=== PATIENT | female | born 1970 | race Two or more races ===

== ENCOUNTER → 2016-09-24 | Outpatient (CLI) | payer BC ==
[~2016-09-24] MED LIST: BIRTH CONTROL PILL PO; METOPROLOL PO; SINGULAIR PO
--- NOTE | ~2016-09-24 | MY29 ---
[facility] A Service of [facility] RADIOLOGY TEXT RESULTS PATIENT: KAREN GARCIA LOCATION: [facility] : 70 UNIT #: [id number] AGE: [address]: Stuart Marte MD SEX: F ORDER DR: [id number] [facility] [address] [place], [place] [address] [id number] O MR#: [id number] Acc #: [id number] NAME: KAREN GARCIA : 1970 SEX: F STUDY DATE/TIME: 09/24/2016 8:41 UNIT: [facility] ROOM: STUDY DESCRIPTION: MY CRISTINA SCREENING W/ CAD BILAT Attending Physician: Stuart Marte M.D. Ordering Physician: Stuart Marte M.D. Primary Care Physician: Stuart Marte M.D. MEDICAL IMAGING REPORT This report is preliminary unless electronic signature is present EXAM Digital screening mammogram 09/24/2016 HISTORY 45-year-old woman no risk elevation. Annual screen. COMPARISON 03/11/2011, 10/06/2012, 12/16/2013. FINDINGS Digital imaging of each breast was completed utilizing a two-view examination of each breast in craniocaudal and mediolateral-oblique projections. Review and interpretation of digital mammograms include a second review in conjunction with FDA-approved CAD device. There is a normal parenchymal presentation bilaterally consistent with the patient's age. There are no breast masses imaged and no parenchymal asymmetry is visualized. There are no suspicious microcalcifications and I see no focal architectural disturbance. IMPRESSION Negative screening digital mammogram. One-year followup recommended. Patients over the age of 40 are entered into a reminder system with target due date for the next mammogram. A result letter will also be sent to the patient. BIRADS: 1 Negative Dictated by... Bill Quezada M.D. [facility] A Service of [facility] RADIOLOGY TEXT RESULTS PATIENT: AKREN GARCIA LOCATION: [facility] : 70 UNIT #: [id number] AGE: [address]: Stuart Marte MD SEX: F ORDER DR: THIS IS AN ELECTRONICALLY VERIFIED REPORT Bill Quezada M.D. at 09/24/2016 1:03 PM FRANKO[place] TD: 09/24/2016 11:03 JOB #: [id number] MEDICAL IMAGING REPORT Page 1 of 1 COPY
== END | disposition home or self-care (01) ==
LOC: CWCC 08:15
DX: Z12.31 Encounter for screening mammogram for malignant neoplasm of breast (principal)
CPT/HCPCS: G0202